=== PATIENT | male | born 1975 | race African-American/Black ===

== ENCOUNTER 2020-06-30 04:15 | Emergency (ER) | payer OTHER ==
[~2020-06-30] VITALS: Ht 177.8 cm; Wt 103.2 kg
[2020-06-30 04:30] VITALS: BP 159/103
[2020-06-30] MEDS ORDERED: CEPH500T PO (04:37)
[2020-06-30] MEDS ORDERED: PHEN100T82 PO (04:37)
--- NOTE | 2020-06-30 04:43 | ED.ADGEN ---
Past Medical History Past Medical History: High Cholesterol, Hypertension Past Surgical History: No Surgical History Smoking Status: Current Some Day Smoker Alcohol Use: Occasionally Drug Use: Marijuana General Adult EDM: Chief Complaint: PENIS PROBLEM HPI: HPI: Patient is a 45 year old male who presents to the Emergency Room complaining of wound to penis with burning. Patient states night he was having rough sex with his girlfriend and caught his penis with a fingernail. He noticed a wound the following morning. The wound lee when he urinates and has a small amount of drainage from it. He states it is keeping him up with pain. He has been able to get an erection since that time. Denies any other injuries. Patient is insistent that he is not worried about STDs. He does not want treated or tested for them. Review of Systems: Review of Systems: Negative other than noted in HPI Allergies: Allergies: Allergies Coded Allergies Type Severity Reaction Last Updated Verified No Known Drug Allergies 11/09/15 No Physical Exam: PE: Constitutional: Well developed, well nourished, no acute distress, non-toxic appearance. [] HENT: Normocephalic, atraumatic, bilateral external ears normal, oropharynx moist, no oral exudates, nose normal. [] Lungs & Thorax: Bilateral breath sounds clear to auscultation [] Abdomen: Bowel sounds normal, soft, no tenderness, no masses, no pulsatile masses. [] : 1cm small wound to anterior with small amount of pus noted, no bleeding, no crusting, no erythema/swelling, no penile discharge Skin: Warm, dry, no erythema. Back: No tenderness, no CVA tenderness. [] Extremities: No tenderness, no cyanosis, no clubbing, ROM intact, no edema. [] Neurologic: Alert and oriented X 3, normal motor function, normal sensory function, no focal deficits noted. [] Psychologic: Affect normal, judgement normal, mood normal. [] EKG: EKG: [] Heart Score: Risk Factors: Risk Factors: DM, Current or recent (<one month) smoker, HTN, HLP, family history of CAD, obesity. Risk Scores: Score 0 - 3: 2.5% MACE over next 6 weeks - Discharge Home Score 4 - 6: 20.3% MACE over next 6 weeks - Admit for Clinical Observation Score 7 - 10: 72.7% MACE over next 6 weeks - Early Invasive Strategies Radiology/Procedures: Radiology/Procedures: [] Course & Med Decision Making: Course & Med Decision Making Pertinent Labs and Imaging studies reviewed. (See chart for details) Patient is a 45 year old male who presents to the Emergency Room complaining of a wound to the penis. He has been able to get erections since he noticed this wound. No signs of significant penile injury. Appears to be small wound with minimal infection. Patient does not want tested or treated for STDs. Will treat with keflex. Plan of care discussed with patient. Strict return precautions were given. Dragon Disclaimer: Dragon Disclaimer: This electronic medical record was generated, in whole or in part, using a voice recognition dictation system. Departure Departure Impression: Primary Impression: Penis injury Additional Impression: Wound infection Disposition: 01 DC HOME SELF CARE/HOMELESS Condition: STABLE Referrals: UNKNOWN PCP NAME (PCP) Patient Instructions: Puncture Wound, Wound Infection Scripts Cephalexin (CEPHALEXIN) 500 Mg Tablet 1 TAB PO BID, #20 TAB Prov: TR MCDANIEL MD 06/30/20 Phenazopyridine Hcl (PYRIDIUM) 100 Mg Tablet 100 MG PO TID for dysuria, #10 TAB Prov: TR MCDANIEL MD 06/30/20 Problem Qualifiers TR MCDANIEL MD Jun 30, 2020 04:43
[2020-06-30] MEDS ORDERED: CEPHALEXIN 250 MG CAPSULE. PO ONE (04:45)
[2020-06-30] MEDS ORDERED: LIDOCAINE 2% VISCOUS 15 ML SOLUTION. SWSW ONE (04:45)
[2020-06-30] MEDS ORDERED: PHENAZOPYRIDINE 200 MG TABLET. PO ONE (04:45)
[2020-07-01] MEDS ORDERED: IBUP-1060 PO (01:25)
== END 2020-06-30 04:55 | disposition home or self-care (01) ==
LOC: ER 04:15
DX: S31.20XA Unspecified open wound of penis, initial encounter (principal); L08.9 Local infection of the skin and subcutaneous tissue, unspecified; E78.00 Pure hypercholesterolemia, unspecified; I10 Essential (primary) hypertension; F17.200 Nicotine dependence, unspecified, uncomplicated; X58.XXXA Exposure to other specified factors, initial encounter; Y93.89 Activity, other specified; Y92.89 Other specified places as the place of occurrence of the external cause; Y99.8 Other external cause status
CPT/HCPCS: 99284

== ENCOUNTER 2020-06-30 23:44 | Emergency (ER) | payer OTHER ==
[~2020-06-30] VITALS: Ht 180.3 cm; Wt 100.9 kg
[~2020-06-30 23:44] MED LIST: CEPH500T PO; PHEN100T82 PO
[2020-06-30 23:48] VITALS: BP 142/70
[2020-07-01 00:18] LABS: CLARITY,URINE CLEAR; COLOR,URINE ORANGE
--- NOTE | 2020-07-01 00:27 | ED.ADGEN ---
Past Medical History Past Medical History: High Cholesterol, Hypertension Past Surgical History: Other Additional Past Surgical Histo: Cyst removal Smoking Status: Never Smoker Alcohol Use: Heavy Drug Use: Marijuana General Adult EDM: Chief Complaint: PAIN ON URINATION HPI: HPI: Patient is a 45 year old male coming to the emergency department for his second visit today. Patient states he has been having burning with urination for the past couple of days. Says he had episode of "rough sex" with his partner and has a laceration to the distal shaft of his penis. Patient states that the problem is burning with urination at the end of urination. States it is kept him from sleeping. Patient states he has been taking his antibiotics and Pyridium today without improvement. Has not tried any other [id number] medications. Denies any other new complaints. Denies any other recent illness. Denies any pain with defecation. Review of Systems: Review of Systems: All other systems within normal limits except for as noted in the HPI Current Medications: Current Medications Medications (Trade) Dose Ordered Sig/Trish Start Time Stop Time Status Last Admin Dose Admin Ketorolac Tromethamine (Toradol Im) 60 mg 1X ONCE 07/01/20 00:30 07/01/20 00:31 DC 07/01/20 00:34 60 MG Allergies: Allergies: Allergies Coded Allergies Type Severity Reaction Last Updated Verified No Known Drug Allergies 11/09/15 No Physical Exam: PE: Constitutional: Well developed, well nourished, no acute distress, non-toxic appearance. [] HENT: Normocephalic, atraumatic, bilateral external ears normal, nose normal. [] Eyes: PERRLA, conjunctiva normal, no discharge. [] Neck: No rigidity, supple, no stridor. [] Cardiovascular: Regular rate and rhythm, brisk cap refill [] Lungs & Thorax: Non labored symmetric respirations, no tachypnea or respiratory distress [] Abdomen: Soft, nondistended. Skin: Warm, dry, no erythema, no rash. [] : No discharge, superficial patient was prepped and draped in normal fashion, wound irrigated and cleansed with normal saline. The distal penis. No erythema or redness. Cm wound was anesthetized with lidocaine []. Depth of wound was examined and [] foreign bodies found. Wound was approximated with [] suture and a [] pattern. [] Sutures placed without complication. Wound was [] dressed a nonadherent bandage. [] Extremities: No deformities, range of motion grossly intact, no lower extremity edema [] Neurologic: Alert and oriented X 3, no focal deficits noted. [] Psychologic: Affect normal, judgement normal, mood normal. [] Current Patient Data: Labs: Laboratory Tests Test 06/30/20 23:46 Urine Collection Type Unknown Urine Color Webb Urine Clarity Clear Urine pH (<5.0-8.0) Urine Specific [place] 1.005 (1.000-1.030) Urine Protein mg/dL (NEG-TRACE) Urine Glucose (UA) mg/dL (NEG) Urine Ketones (Stick) mg/dL (NEG) Urine Blood (NEG) Urine Nitrite (NEG) Urine Bilirubin (NEG) Urine Urobilinogen Dipstick mg/dL (0.2 mg/dL) Urine Leukocyte Esterase (NEG) Urine RBC 0 /HPF (0-2) Urine WBC 0 /HPF (0-4) Urine Squamous Epithelial Cells Occ /LPF Urine Bacteria 0 /HPF (0-FEW) Vital Signs: Vital Signs Date Time Temp Pulse Resp B/P (MAP) Pulse Ox O2 Delivery O2 Flow Rate FiO2 06/30/20 23:48 98.0 84 20 142/70 (94) 98 Room Air 98.0 EKG: EKG: [] Heart Score: Risk Factors: Risk Factors: DM, Current or recent (<one month) smoker, HTN, HLP, family history of CAD, obesity. Risk Scores: Score 0 - 3: 2.5% MACE over next 6 weeks - Discharge Home Score 4 - 6: 20.3% MACE over next 6 weeks - Admit for Clinical Observation Score 7 - 10: 72.7% MACE over next 6 weeks - Early Invasive Strategies Radiology/Procedures: Radiology/Procedures: [] Course & Med Decision Making: Course & Med Decision Making Urine sample limited by Pyridium use. Pending GC chlamydia culture. Patient symptoms improved with Toradol. [] Dragon Disclaimer: Dragon Disclaimer: This electronic medical record was generated, in whole or in part, using a voice recognition dictation system. Departure Departure Impression: Primary Impression: Dysuria Disposition: 01 DC HOME SELF CARE/HOMELESS Condition: STABLE Referrals: NO PCP (PCP) Patient Instructions: Urinary Frequency Scripts Ibuprofen (IBUPROFEN) 800 Mg Tablet 800 MG PO PRN Q8HRS PRN for PAIN for 10 Days, #3 TAB Prov: HARSHA FABIAN MD 07/01/20 HARSHA FABIAN MD Jul 01, 2020 00:27
[2020-07-01 00:30] LABS: BACTERIA,URINE 0 /HPF (0-FEW); RBC,URINE 0 /HPF (0-2); WBC,URINE 0 /HPF (0-4)
[2020-07-01] MEDS ORDERED: KETOROLAC 60 MG/2 ML VIAL. IM ONE (00:30)
[2020-07-01] MEDS ORDERED: IBUP-1060 PO (01:25)
== END 2020-07-01 01:35 | disposition home or self-care (01) ==
LOC: ER 23:44
DX: R30.0 Dysuria (principal); E78.00 Pure hypercholesterolemia, unspecified; I10 Essential (primary) hypertension
CPT/HCPCS: 81001; 87491; 87591; 96372; 99283; J1885; 99285-25